=== PATIENT | male | born 1960 | race Caucasian/White ===

== ENCOUNTER 2016-04-26 11:47 | Day surgery (SDC) ==
--- NOTE | 2016-04-22 14:25 | EKG Report ---
Test Performed on : 04/22/2016 2:24:09 PM Test Reason : PAT Blood Pressure : / mmHG Vent. Rate : 084 BPM Atrial Rate : 084 BPM P-R Int : 176 ms QRS Dur : 076 ms QT Int : 378 ms P-R-T Axes : 022 018 045 degrees QTc Int : 446 ms Normal sinus rhythm. Cannot rule out Inferior infarct , age undetermined Abnormal ECG No previous ECGs available Confirmed by Poonam ROMERO, Luis A Mckeon ([id number]) on 04/23/2016 5:22:50 PM
[2016-04-22 15:06] LABS: HEMATOCRIT 40.2 % (42.0-52.0); MCH 32.3 PG (27-31); MCHC 34.8 g/dL (33-37); MCV 92.8 FL (81-99); MPV 10.5 FL (7.4-10.4); RBC 4.33 XMIL (4.7-6.1)
[2016-04-22 15:14] LABS: AGAP 13; BUN 11 mg/dL (8-22); CALCIUM 9.3 mg/dL (8.8-10.2); CHLORIDE 93 mmol/L (98-107); COSMO 266; POTASSIUM 4.4 mmol/L (3.5-5.1); SODIUM 133 mmol/L (136-145); TCO2 27 mmol/L (25-35)
[2016-04-26] MEDS ORDERED: REGLAN ONE (12:01)
[2016-04-26] MEDS ORDERED: KEFZOL 2 GM/D5W 50 ML ONE (12:01)
[2016-04-26] MEDS ORDERED: PEPCID ONE (12:01)
[2016-04-26] MEDS ORDERED: LR 1,000 ML ONE (12:01)
[2016-04-26] MEDS ORDERED: MARCAINE 0.5% PF ONE (14:16)
[2016-04-26] MEDS ORDERED: FENTANYL ONE (15:17)
[2016-04-26] MEDS ORDERED: DIPRIVAN 1% ONE (15:17)
[2016-04-26] MEDS ORDERED: TORADOL ONE (15:39)
[2016-04-26] MEDS ORDERED: XYLOCAINE-MPF 2% ONE (15:39)
[2016-04-26] MEDS ORDERED: LABETALOL (DOSE) ONE (15:39)
--- NOTE | 2016-04-26 15:45 | OPERATIVE NOTE ---
PROCEDURE DATE: 04/26/2016 PREOPERATIVE DIAGNOSIS: Left wrist volar ganglion cyst. POSTOPERATIVE DIAGNOSIS: Left wrist volar ganglion cyst. PROCEDURE: Excision left wrist volar ganglion cyst. ANESTHESIA: General. SURGEON: Rolando Kearns MD SQL DEVELOPER DBA: James Sawant RN COMPLICATIONS: None. BLOOD LOSS: Minimal. DESCRIPTION OF PROCEDURE: The patient was brought to operative suite and placed in supine position. After satisfactory administration of general anesthesia, a well-padded tourniquet was placed on the left proximal arm. Left upper extremity was prepped and draped in the usual sterile fashion. The arm was exsanguinated. Tourniquet insufflated to 250 torr. A transverse incision was made overlying the volar ganglion cyst. It was dissected sharply through the skin and the cyst was dissected bluntly down to its origin off the volar wrist capsule. This was excised in a window to prevent recurrence and electrocauterized, hemostasis was obtained with electrocautery. The skin edge reapproximated with 5-0 nylon suture. The wound was injected with Marcaine and a sterile dressing was applied. The patient tolerated the procedure well without complication. At the end of the procedure, all counts correct x2. The patient was transferred to the recovery room in stable condition.
[2016-04-26 16:10] VITALS: BP 131/95
== END 2016-04-26 16:15 | disposition home or self-care (01) ==
LOC: PAT 11:47
PROVIDERS: ATTEND Orthopaedic Surgery
DX: M67.432 Ganglion, left wrist (principal); I10 Essential (primary) hypertension
CPT/HCPCS: 80048; 85027; 88304; 93005; 93010; J0690; J1885; J3010; J7120; S0020